=== PATIENT | male | born 1970 | race Caucasian/White ===

== ENCOUNTER 2023-12-05 11:12 | Emergency (ER) | payer BC, SELFPAY ==
[2023-12-05 11:14] VITALS: BP 133/88; BMI 26.5
--- NOTE | 2023-12-05 12:44 | ED.GENMED ---
History of Present Illness
General
Chief Complaint: Back Pain
Source: patient
Exam Limitations: none
Time Seen by Provider: 12/05/23 11:44
Nursing documentation reviewed up to this point in time: agreed with
History of Present Illness
History of Present Illness:
Patient is a 53-year-old male who presented to the ER complaining of low back pain radiating to left leg. He reports 2 weeks ago he picked up a saw and since then has had low back pain but mainly presents with pain from his left buttock shooting
down his left thigh. He reports this is what is causing him discomfort. He does not have a family doctor but his [id number] is a nurse practitioner who prescribed him diclofenac and he has been taking prednisone 40 mg and ibuprofen without
relief.
He reports pain worse with standing on his left leg because of shooting pain down his left thigh. He denies any bowel bladder incontinence.
Review of Systems
Review of Systems
Allergies reviewed?: Yes
All Other Systems: ROS reviewed and negative except as documented in HPI and ROS
Constitutional: Reports no symptoms
Respiratory: Reports no symptoms
Cardiac: Reports no symptoms
ABD/GI: Reports no symptoms
Musculoskeletal: Reports back pain (Back pain radiating to left leg )
Skin: Reports no symptoms
Psychiatric: Reports no symptoms
Phy Exam
General Physical Exam
General Presentation: no apparent distress
General age: appears stated age
General Skin: warm and dry
General Habitus: normal
General Mental: alert
General Hydration: appears well hydrated
Neurological Exam
Neurological Exam: alert, oriented x3 and other (Normal dorsiflexion plantarflexion normal distal sensation)
Musculoskeletal Exam
Musculoskeletal Exam: other (Normal inspection to back normal strength bilateral lower extremities normal patellar reflexes bilaterally normal dorsiflexion plantarflexion normal distal sensation)
Skin Exam
Skin Exam: normal color and warm/dry
Psychiatric Exam
Psychiatric Exam: normal mood/affect
Course
Orders/Labs/Results
Orders:
Orders
12/05/23 12:40
HYDROmorphone [Dilaudid] 1 mg IM NOW STA
12/05/23 12:41
Lumbar Spine Complete, 4 View [CR Lumbar Spine Comp Min 4 Vw*] Urgent
Comment:
Reason For Exam: pain after lifting
Vital Signs
Initial and Last Documented VS:
Initial Vital Signs
Temp Pulse Resp BP Pulse Ox
97.8 F 89 16 133/88 99
12/05/23 11:14 12/05/23 11:14 12/05/23 11:14 12/05/23 11:14 12/05/23 11:14
Last Documented Vital Signs
Temp Pulse Resp BP Pulse Ox
97.8 F 95 18 135/91 96
12/05/23 11:14 12/05/23 14:04 12/05/23 14:04 12/05/23 14:04 12/05/23 14:04
MDM/Problems Addressed
Differential Diagnosis Includes:
Not limited to sciatica, compression fracture, muscle strain
MDM/Problems Addressed:
Symptoms are consistent with sciatica. Patient currently has prednisone prescription for 40 mg daily and is also diclofenac. Patient with no neurologic deficits however he appears uncomfortable with pain shooting down his left leg when he stands.
He was given 1 IM dose of narcotic medication here and sent home with a small dose to control his pain until he is able to see outpatient Ortho or pain management. d/c close outpt f/u n. no neuro deficits
*Radiology
Radiology exam reviewed: radiology read reviewed
*Pulse Oximetry
Patient hypoxic: no
*Critical Care Note
Total Time (30-74mins, 75-104mins- exclusive of procedures): Not Applicable
ED Attending Note
-
Portions of this chart may have been created with voice recognition software.� Occasional wrong word or��sound alike� substitutions may have occurred due to the inherent limitations of voice recognition software.
Discharge Plan
Departure
Patient Disposition: Home (Routine Discharge)
Date of Disposition: 12/05/23
Time of Disposition: 14:10
Patient with high blood pressure during this ER visit?: Yes
Condition: Fair
Covid-19: Not Applicable
Discharge Problem:
Sciatica
Instructions: Sciatica (DC), BLOOD PRESSURE
Prescriptions:
New
oxycodone 5 mg capsule
5 mg PO Q6H PRN (Reason: Pain) Qty: 10 0RF
Referrals:
Jairo Simmons MD [Active] -
NONE,* [Family Provider] -
Helder Long MD [Active] -
Activity Restrictions/Additional Instructions:
Continue to take steroids as previously recommended.
alternate with Tylenol as discussed however if needed a prescription for oxycodone was sent to your pharmacy take only as directed. This will cause drowsiness no driving or drink alcohol with taking this medication. This medication ,may also
cause constipation it is recommended to take [id number] stool softener while taking this medication. Follow-up with orthopedics in the next several days return if any worsening of symptoms if increased pain, numbness tingling or weakness in
lower extremities or loss of bowel or bladder.
Interventions
Interventions:
*Risk Screen - Suicide Last Done: 12/05/23 11:14
*General Assessment Last Done: 12/05/23 11:28
*Neglect/Abuse Screening Last Done: 12/05/23 11:14
ED- Fall Risk Assessment Last Done: 12/05/23 14:24
*ED COVID-19 Vaccine History Last Done: 12/05/23 11:28
*Nursing Disposition Last Done: 12/05/23 14:24
ED-Musculoskeletal Assessment Last Done: 12/05/23 11:28
Discharge Date and Time
Discharge Date/Time: 12/05/23 14:25
Print Language: MONGOLIAN
[2023-12-05] MEDS: DILAUDID 1 MG IM (12:50)
[2023-12-05 14:04] VITALS: BP 135/91
== END 2023-12-05 14:25 | disposition home or self-care (01) ==
LOC: EMR 11:12
PROVIDERS: EMERGENCY PHYSICIAN Emergency Medicine
DX: M54.40 Lumbago with sciatica, unspecified side (principal)
CPT/HCPCS: 99284; 96372; 72110